=== PATIENT | female | born 2000 ===

== ENCOUNTER 2019-12-07 20:19 | Inpatient (IN) | payer BC ==
[2019-12-07] MEDS ORDERED: Ondansetron 4 MG/2 ML SDV IVPUSH PRN (20:44)
[2019-12-07] MEDS ORDERED: Lidocaine 1% 50 ML MDV INJECT PRN (20:44)
[2019-12-07] MEDS ORDERED: Sodium Chloride 0.9% 2.5 ML Syringe FLUSH PRN (20:44)
[2019-12-07] MEDS ORDERED: Sodium Chloride 0.9% 10 ML Syringe FLUSH PRN (20:44)
[2019-12-07] MEDS ORDERED: Sodium Chloride 0.9% 10 ML SDV IV PRN (20:44)
[2019-12-07] MEDS ORDERED: Misoprostol 200 MCG Tab PO PRN (20:44)
[2019-12-07] MEDS ORDERED: Butorphanol 1 MG/ML SDV IVPUSH PRN (20:44)
[2019-12-07] MEDS ORDERED: Methylergonovine 0.2 MG/1 ML Amp IM PRN (20:44)
[2019-12-07] MEDS ORDERED: Tranexamic Acid 1,000 MG in Sodium Chloride 0.9% 100 ML IV PRN (20:44)
[2019-12-07] MEDS ORDERED: Water For Irrigation,Sterile 1,000 ML Container IRR PRN (20:44)
[2019-12-07] MEDS ORDERED: Carboprost Tromethamine 250 MCG/1 ML Amp IM PRN (20:44)
[2019-12-07] MEDS ORDERED: Oxytocin/0.9 % Sodium Chloride 30 UNIT/500 ML BAG IV SCH ×2 (20:45→22:00)
--- NOTE | 2019-12-07 21:39 | PCM.LDHP ---
L&D History of Present Illness - General Date of Service: 12/07/19 Admit Problem/Dx: Patient Status Order with Admit Dx/Problem 12/07/19 20:23 Patient Status [ADT] Routine 12/07/19 20:44 Patient Status [ADT] Routine Admission Diagnosis/Problem Admission Diagnosis/Problem Source of Information: Patient History Limitations: Reports: No Limitations - History of Present Illness Improves with: Reports: None Worsens with: Reports: None Associated Symptoms: Reports: N - Related Data Allergies/Adverse Reactions: Allergies Allergy/AdvReac Type Severity Reaction Status Date / Time No Known Allergies Allergy Verified 12/07/19 20:54 Home Medications: Home Meds . [No Known Home Meds] 09/12/15 [History] Past Medical History - Past Health History Medical/Surgical History: Denies Medical/Surgical History Social & Family History - Family History Family Medical History: Noncontributory H&P Review of Systems - Review of Systems: Review Of Systems: See Below General: Reports: No Symptoms HEENT: Reports: No Symptoms Pulmonary: Reports: No Symptoms Cardiovascular: Reports: No Symptoms Gastrointestinal: Reports: No Symptoms Genitourinary: Reports: No Symptoms Musculoskeletal: Reports: No Symptoms Skin: Reports: No Symptoms Psychiatric: Reports: No Symptoms Neurological: Reports: No Symptoms Hematologic/Lymphatic: Reports: No Symptoms Immunologic: Reports: No Symptoms L&D Exam - Exam Exam: See Below - Vital Signs Weight: 86.183 kg - OB Specific Contraction Intensity: Mild to Moderate Presentation: Vertex - Mock Score Mock Score Cervix Position: Midposition Mock Score Consistency: Medium Mock Score Effacement: 51-70% Mock Score Dilation: 1-2 cm Mock Score 's Station: -3 Mock Score Total: 5 - Exam General: Alert, Oriented HEENT: PERRLA, Conjunctiva Clear, EACs Clear, EOMI, Hearing Intact, Mucosa Moist & Hyndman, Nares Patent, Normal Nasal Septum, Posterior Pharynx Clear, TMs Clear Neck: Supple, Trachea Midline Lungs: Clear to Auscultation, Normal Respiratory Effort Cardiovascular: Regular Rate, Regular Rhythm GI/Abdominal Exam: Normal Bowel Sounds, Soft, Non-Tender, No Organomegaly, No Distention, No Abnormal Bruit, No Mass, Pelvis Stable Rectal Exam: Normal Exam, Normal Rectal Tone Genitourinary: Normal external exam, Normal bimanual exam, Normal speculum exam Back Exam: Normal Inspection, Full Range of Motion Extremities: Normal Inspection, Normal Range of Motion, Non-Tender, No Pedal Edema, Normal Capillary Refill Skin: Warm, Dry, Intact Neurological: Cranial Nerves Intact, Reflexes Equal Bilateral Psychiatric: Alert, Normal Affect, Normal Mood Problem List Initiated/Reviewed/Updated: Yes Orders Last 24hrs: Active Orders 24 hr Category Date Time Status Patient Status [ADT] Routine ADT 12/07/19 20:23 Active Patient Status [ADT] Routine ADT 12/07/19 20:44 Active Heart Tones [RC] CONTINUOUS Care 12/07/19 20:44 Active Non Stress Test [RC] PER UNIT ROUTINE Care 12/07/19 20:23 Active May Shower [RC] ASDIRECTED Care 12/07/19 20:44 Active Notify Provider [RC] PRN Care 12/07/19 20:44 Active Up ad Shelly [RC] ASDIRECTED Care 12/07/19 20:23 Active Up ad Shelly [RC] ASDIRECTED Care 12/07/19 20:44 Active Vaginal Exam [RC] Click to Edit Care 12/07/19 20:23 Active Vaginal Exam [RC] PRN Care 12/07/19 20:44 Active Vital Signs [RC] PER UNIT ROUTINE Care 12/07/19 20:23 Active Vital Signs [RC] PER UNIT ROUTINE Care 12/07/19 20:44 Active Regular Diet [DIET] Diet 12/07/19 Breakfast Active CBC W/O DIFF,HEMOGRAM [HEME] Routine Lab 12/07/19 20:44 Ordered RPR (SYPHILIS SERO) W/ RFLX [REF] Routine Lab 12/07/19 20:44 Ordered TYPE AND SCREEN [BBK] Routine Lab 12/07/19 20:44 Ordered Butorphanol [Stadol] Med 12/07/19 20:44 Active 1 mg IVPUSH Q1H PRN Carboprost Tromethamine [Hemabate DS] Med 12/07/19 20:44 Active 250 mcg IM ASDIRECTED PRN Lactated Ringers [Ringers, Lactated] 1,000 ml Med 12/07/19 20:45 Active IV ASDIRECTED Lidocaine 1% [Xylocaine 1%] Med 12/07/19 20:44 Active 50 ml INJECT ONETIME PRN Methylergonovine [Methergine] Med 12/07/19 20:44 Active 0.2 mg IM ASDIRECTED PRN Nalbuphine [Nubain] Med 12/07/19 20:44 Active 10 mg IVPUSH Q1H PRN Ondansetron [Zofran] Med 12/07/19 20:44 Active 4 mg IVPUSH Q4H PRN Oxytocin/0.9 % Sodium Chloride [Oxytocin 30 Unit/500 ML Med 12/07/19 20:45 Active -NS] 30 unit in 500 ml IV TITRATE Sodium Chloride 0.9% [Normal Saline] Med 12/07/19 20:44 Active 10 ml IV ASDIRECTED PRN Sodium Chloride 0.9% [Saline Flush] Med 12/07/19 20:44 Active 10 ml FLUSH ASDIRECTED PRN Sodium Chloride 0.9% [Saline Flush] Med 12/07/19 20:44 Active 2.5 ml FLUSH ASDIRECTED PRN Tranexamic Acid [Cyklokapron] 1,000 mg Med 12/07/19 20:44 Active Sodium Chloride 0.9% [Normal Saline] 100 ml IV ONETIME Water For Irrigation,Sterile [Sterile Water for Med 12/07/19 20:44 Active Irrigation] 1,000 ml IRR ASDIRECTED PRN miSOPROStoL [Cytotec] Med 12/07/19 20:44 Active 200 mcg PO ONETIME PRN Scalp Electrode [WOMSER] Per Unit Routine Oth 12/07/19 20:44 Ordered Peripheral IV Insertion Adult [OM.PC] Routine Oth 12/07/19 20:44 Ordered Resuscitation Status Routine Resus Stat 12/07/19 20:23 Ordered Medication Orders Butorphanol Tartrate (Stadol) 1 mg IVPUSH Q1H PRN PRN Reason: Pain Carboprost Tromethamine (Hemabate Ds) 250 mcg IM ASDIRECTED PRN PRN Reason: Post Hemorrhage Tranexamic Acid 1,000 mg/ (Sodium Chloride) 110 mls @ 660 mls/hr IV ONETIME PRN PRN Reason: Bleeding Lactated Ringer's (Ringers, Lactated) 1,000 mls @ 150 mls/hr IV ASDIRECTED CHERYL Oxytocin/Sodium Chloride (Oxytocin 30 Unit/500 Ml-Ns) 30 unit in 500 mls @ 555 mls/hr IV TITRATE CHERYL Lidocaine HCl (Xylocaine 1%) 50 ml INJECT ONETIME PRN PRN Reason: Laceration repair Methylergonovine Maleate (Methergine) 0.2 mg IM ASDIRECTED PRN PRN Reason: Post Hemorrhage Misoprostol (Cytotec) 200 mcg PO ONETIME PRN PRN Reason: Post Hemorrhage Nalbuphine HCl (Nubain) 10 mg IVPUSH Q1H PRN PRN Reason: Pain (severe 7-10) Ondansetron HCl (Zofran) 4 mg IVPUSH Q4H PRN PRN Reason: Nausea/Vomiting Sodium Chloride (Saline Flush) 10 ml FLUSH ASDIRECTED PRN PRN Reason: Keep Vein Open Sodium Chloride (Saline Flush) 2.5 ml FLUSH ASDIRECTED PRN PRN Reason: Keep Vein Open Sodium Chloride (Normal Saline) 10 ml IV ASDIRECTED PRN PRN Reason: IV Use Sterile Water (Sterile Water For Irrigation) 1,000 ml IRR ASDIRECTED PRN PRN Reason: delivery Assessment/Plan Comment:: TErm . SROM. admit and start induction.
[2019-12-07] MEDS ORDERED: Misoprostol 25 MCG (1/4 of 100 MCG) Tab VAG PRN ×2 (21:56)
[2019-12-07] MEDS ORDERED: Terbutaline 1 MG/ML SDV SUBCUT PRN (21:56)
[2019-12-07] MEDS ORDERED: Misoprostol 25 MCG (1/4 of 100 MCG) Tab PO ONE (22:15)
[2019-12-07] MEDS ORDERED: Misoprostol 25 MCG (1/4 of 100 MCG) Tab PO PRN (22:15)
[2019-12-08] MEDS: Lactated Ringers 1,000 ML IV SCH ×3 (01:18→04:48)
[2019-12-08] MEDS: Nalbuphine 10 MG/1 ML Vial IVPUSH PRN ×2 (01:34→03:03)
[2019-12-08] MEDS ORDERED: Ropivacaine HCl/PF 100 ML ONE (03:41)
[2019-12-08] MEDS ORDERED: fentaNYL 100 MCG/2 ML SDV ONE (03:41)
--- NOTE | 2019-12-08 04:18 | PCM.PREANE ---
Preanesthetic Assessment - Anesthesia/Transfusion/Family Hx Anesthesia History: Prior Anesthesia Without Reaction Family History of Anesthesia Reaction: No Transfusion History: No Prior Transfusion(s) - Physical Assessment NPO Status Date: 12/08/19 NPO Status Time: 00:05 Height: 1.65 m Weight: 86.183 kg ASA Class: 1 - Lab Values: Laboratory Last Values WBC 11.74 K/uL (4.0-11.0) H 12/07/19: RBC 4.13 M/uL (4.30-5.90) L 12/07/19 22:25 Hgb 11.0 g/dL (12.0-16.0) L 12/07/19 22: Hct 34.3 % (36.0-46.0) L 12/07/19: MCV 83.1 fL (80.0-98.0) 12/07/19 22: MCH 26.6 pg (27.0-32.0) L 12/07/19: MCHC 32.1 g/dL (31.0-37.0) 12/07/19 22: RDW Std Deviation 43.6 fl (28.0-62.0) 12/07/19 22: RDW Coeff of Melida 14 % (11.0-15.0) 12/07/19 22: Plt Count 206 K/uL (150-400) 12/07/19 22:25 MPV 11.30 fL (7.40-12.00) 12/07/19 22:25 Nucleated RBC % 0.0 /100WBC 12/07/19 22: Nucleated RBCs # 0 K/uL 12/07/19 22:25 Blood Type O POSITIVE 12/07/19 22:25 Antibody Screen NEGATIVE 12/07/19 22:25 - Allergies Allergies/Adverse Reactions: Allergies Allergy/AdvReac Type Severity Reaction Status Date / Time No Known Allergies Allergy Verified 12/07/19 20:54 - Acknowledgements Anesthesia Type Planned: Epidural Pt an Appropriate Candidate for the Planned Anesthesia: Yes Alternatives and Risks of Anesthesia Discussed w Pt/Guardian: Yes Pt/Guardian Understands and Agrees with Anesthesia Plan: Yes PreAnesthesia Questionnaire - Past Health History Medical/Surgical History: Denies 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 [No Known Home Meds] 09/12/15 [History] - CURRENT (IN HOUSE) MEDS Current Meds: Current Medications Butorphanol Tartrate (Stadol) 1 mg IVPUSH Q1H PRN PRN Reason: Pain Carboprost Tromethamine (Hemabate Ds) 250 mcg IM ASDIRECTED PRN PRN Reason: Post Hemorrhage Tranexamic Acid 1,000 mg/ (Sodium Chloride) 110 mls @ 660 mls/hr IV ONETIME PRN PRN Reason: Bleeding Lactated Ringer's (Ringers, Lactated) 1,000 mls @ 150 mls/hr IV ASDIRECTED CHERYL Last Admin: 12/08/19 03:03 Dose: 999 mls/hr Oxytocin/Sodium Chloride (Oxytocin 30 Unit/500 Ml-Ns) 30 unit in 500 mls @ 555 mls/hr IV TITRATE CHERYL Oxytocin/Sodium Chloride (Oxytocin 30 Unit/500 Ml-Ns) 30 unit in 500 mls @ 2 mls/hr IV TITRATE CHERYL; Protocol Lidocaine HCl (Xylocaine 1%) 50 ml INJECT ONETIME PRN PRN Reason: Laceration repair Methylergonovine Maleate (Methergine) 0.2 mg IM ASDIRECTED PRN PRN Reason: Post Hemorrhage Misoprostol (Cytotec) 200 mcg PO ONETIME PRN PRN Reason: Post Hemorrhage Misoprostol (Cytotec) 25 mcg VAG ONETIME PRN PRN Reason: Cervical Ripening Last Admin: 12/07/19 22:35 Dose: 25 mcg Misoprostol (Cytotec) 25 mcg VAG Q4H PRN PRN Reason: Cervical Ripening Misoprostol (Cytotec) 25 mcg PO Q4H PRN PRN Reason: Other Nalbuphine HCl (Nubain) 10 mg IVPUSH Q1H PRN PRN Reason: Pain (severe 7-10) Last Admin: 12/08/19 03:03 Dose: 10 mg Ondansetron HCl (Zofran) 4 mg IVPUSH Q4H PRN PRN Reason: Nausea/Vomiting Sodium Chloride (Saline Flush) 10 ml FLUSH ASDIRECTED PRN PRN Reason: Keep Vein Open Sodium Chloride (Saline Flush) 2.5 ml FLUSH ASDIRECTED PRN PRN Reason: Keep Vein Open Sodium Chloride (Normal Saline) 10 ml IV ASDIRECTED PRN PRN Reason: IV Use Sterile Water (Sterile Water For Irrigation) 1,000 ml IRR ASDIRECTED PRN PRN Reason: delivery Terbutaline Sulfate (Brethine) 0.25 mg SUBCUT ASDIRECTED PRN PRN Reason: Tacysystole Discontinued Medications Fentanyl (Sublimaze) Confirm Administered Dose 100 mcg .ROUTE .STK-MED ONE Stop: 12/08/19 03:42 Ropivacaine (Naropin 0.2%) Confirm Administered Dose 100 mls @ as directed .ROUTE .STK-MED ONE Stop: 12/08/19 03:42 Misoprostol (Cytotec) 25 mcg PO ONETIME ONE Stop: 12/07/19 22:16 Last Admin: 12/07/19 22:35 Dose: 25 mcg
--- NOTE | 2019-12-08 04:21 | PCM.PRNOTE ---
- Free Text/Narrative Note: Anes NOte Patient requests epidural for L&D. Sitting position, level L4-L5 midline approach. Sterile technique. Chloraprep scrub to lumbar area. Sterile fenestrated drape applied. Epidural space achieved using NAVJOT technique. NAVJOT at 4 cm. Cath threaded 5 cm with ease. Cath secured at skin at 9 cm. 0406 Test 3 cc 1.5% lido with epi negative. 0409 Load 10 cc 0.2% ropivicaine with 1 mcg cc fentanyl in slow divided doses. 0414 Pump started wtih 90 cc same solution. Rate is 8 cc hr with 6 cc q 20 min prn bolus. Silver well. Time with patient [id number] Miguel Lopez [employer]
[2019-12-08] MEDS ORDERED: Bisacodyl 10 MG Supp RECTAL PRN (08:46)
[2019-12-08] MEDS ORDERED: oxyCODONE 5 MG Tab PO PRN (08:46)
[2019-12-08] MEDS ORDERED: Benzocaine/Menthol 20%-0.5% Spray 78 GM Cannister TOP PRN (08:46)
[2019-12-08] MEDS ORDERED: Witch Hazel Medicated Pads 40/Jar TOP PRN (08:46)
[2019-12-08] MEDS ORDERED: Acetaminophen 500 MG Tab PO PRN ×2 (08:46)
[2019-12-08] MEDS ORDERED: Docusate Sodium 100 MG Cap PO PRN (08:46)
[2019-12-08] MEDS ORDERED: Lanolin 100% Cream 7 GM Tube TOP PRN (08:46)
[2019-12-08] MEDS ORDERED: Ibuprofen 400 MG Tab PO PRN (08:46)
[2019-12-08] MEDS: Ibuprofen 800 MG Tab PO PRN ×2 (11:57→18:12)
[2019-12-09] MEDS: Ibuprofen 800 MG Tab PO PRN (04:22)
--- NOTE | 2019-12-09 06:56 | PCM48HPAN ---
Post Anesthesia Note - EVALUATION WITHIN 48HRS OF ANESTHETIC Vital Signs in Normal Range: Yes Patient Participated in Evaluation: Yes Respiratory Function Stable: Yes Airway Patent: Yes Cardiovascular Function Stable: Yes Hydration Status Stable: Yes Pain Control Satisfactory: Yes Nausea and Vomiting Control Satisfactory: Yes Mental Status Recovered: Yes Vital Signs: Last Vital Signs Temp 36.3 C 12/09/19 04:05 Pulse 100 12/09/19 04:05 Resp 17 12/09/19 04:05 BP 98/64 12/09/19 04:05 Pulse Ox 98 12/09/19 04:05
--- NOTE | 2019-12-09 08:34 | PCM.PNPP ---
- General Info Date of Service: 12/09/19 Functional Status: Reports: Pain Controlled - Review of Systems General: Reports: No Symptoms HEENT: Reports: No Symptoms Pulmonary: Reports: No Symptoms Cardiovascular: Reports: No Symptoms Gastrointestinal: Reports: No Symptoms Genitourinary: Reports: No Symptoms Musculoskeletal: Reports: No Symptoms Skin: Reports: No Symptoms Neurological: Reports: No Symptoms Psychiatric: Reports: No Symptoms - General Info Date of Service: 12/09/19 - Patient Data Vital Signs - Most Recent: Last Vital Signs Temp 36.3 C 12/09/19 04:05 Pulse 100 12/09/19 04:05 Resp 17 12/09/19 04:05 BP 98/64 12/09/19 04:05 Pulse Ox 98 12/09/19 04:05 Weight - Most Recent: 86.183 kg Lab Results - Last 24 Hours: Laboratory Results - last 24 hr 12/09/19 Range/Units 06:05 Hgb 8.5 L (12.0-16.0) g/dL Hct 26.3 L (36.0-46.0) % Med Orders - Current: Current Medications Acetaminophen (Tylenol Extra Strength) 500 mg PO Q4H PRN PRN Reason: Pain Acetaminophen (Tylenol Extra Strength) 1,000 mg PO Q4H PRN PRN Reason: Pain Benzocaine/Menthol (Dermoplast Pain Relief 20%-0.5% Cascade) 78 gm TOP ASDIRECTED PRN PRN Reason: Perineal Comfort Measure Last Admin: 12/08/19 11:56 Dose: 1 canister Bisacodyl (Dulcolax) 10 mg RECTAL ONETIME PRN PRN Reason: Constipation Butorphanol Tartrate (Stadol) 1 mg IVPUSH Q1H PRN PRN Reason: Pain Carboprost Tromethamine (Hemabate Ds) 250 mcg IM ASDIRECTED PRN PRN Reason: Post Hemorrhage Docusate Sodium (Colace) 100 mg PO BID PRN PRN Reason: Constipation Emollient Ointment (Lansinoh Hpa) 0 gm TOP ASDIRECTED PRN PRN Reason: Sore Nipples Tranexamic Acid 1,000 mg/ (Sodium Chloride) 110 mls @ 660 mls/hr IV ONETIME PRN PRN Reason: Bleeding Lactated Ringer's (Ringers, Lactated) 1,000 mls @ 150 mls/hr IV ASDIRECTED CHERYL Last Admin: 12/08/19 04:48 Dose: 999 mls/hr Oxytocin/Sodium Chloride (Oxytocin 30 Unit/500 Ml-Ns) 30 unit in 500 mls @ 555 mls/hr IV TITRATE CHERYL Oxytocin/Sodium Chloride (Oxytocin 30 Unit/500 Ml-Ns) 30 unit in 500 mls @ 2 mls/hr IV TITRATE CHERYL; Protocol Last Titration: 12/08/19 09:42 Dose: Infused Ibuprofen (Motrin) 400 mg PO Q4H PRN PRN Reason: Pain Ibuprofen (Motrin) 800 mg PO Q6H PRN PRN Reason: Pain Last Admin: 12/09/19 04:22 Dose: 800 mg Lidocaine HCl (Xylocaine 1%) 50 ml INJECT ONETIME PRN PRN Reason: Laceration repair Methylergonovine Maleate (Methergine) 0.2 mg IM ASDIRECTED PRN PRN Reason: Post Hemorrhage Misoprostol (Cytotec) 200 mcg PO ONETIME PRN PRN Reason: Post Hemorrhage Misoprostol (Cytotec) 25 mcg VAG ONETIME PRN PRN Reason: Cervical Ripening Last Admin: 12/07/19 22:35 Dose: 25 mcg Misoprostol (Cytotec) 25 mcg VAG Q4H PRN PRN Reason: Cervical Ripening Misoprostol (Cytotec) 25 mcg PO Q4H PRN PRN Reason: Other Nalbuphine HCl (Nubain) 10 mg IVPUSH Q1H PRN PRN Reason: Pain (severe 7-10) Last Admin: 12/08/19 03:03 Dose: 10 mg Ondansetron HCl (Zofran) 4 mg IVPUSH Q4H PRN PRN Reason: Nausea/Vomiting Oxycodone HCl (Oxycodone) 5 mg PO Q2H PRN PRN Reason: Pain Sodium Chloride (Saline Flush) 10 ml FLUSH ASDIRECTED PRN PRN Reason: Keep Vein Open Sodium Chloride (Saline Flush) 2.5 ml FLUSH ASDIRECTED PRN PRN Reason: Keep Vein Open Sodium Chloride (Normal Saline) 10 ml IV ASDIRECTED PRN PRN Reason: IV Use Sterile Water (Sterile Water For Irrigation) 1,000 ml IRR ASDIRECTED PRN PRN Reason: delivery Terbutaline Sulfate (Brethine) 0.25 mg SUBCUT ASDIRECTED PRN PRN Reason: Tacysystole Nguyễn Mariano (Tucks) 1 pad TOP ASDIRECTED PRN PRN Reason: comfort care Last Admin: 12/08/19 11:56 Dose: 1 tub Discontinued Medications Fentanyl (Sublimaze) Confirm Administered Dose 100 mcg .ROUTE .STK-MED ONE Stop: 12/08/19 03:42 Last Admin: 12/08/19 19:33 Dose: Not Given Ropivacaine (Naropin 0.2%) Confirm Administered Dose 100 mls @ as directed .ROUTE .STK-MED ONE Stop: 12/08/19 03:42 Last Admin: 12/08/19 19:33 Dose: Not Given Misoprostol (Cytotec) 25 mcg PO ONETIME ONE Stop: 12/07/19 22:16 Last Admin: 12/07/19 22:35 Dose: 25 mcg - Interaction Infant Disposition, : in Room with Family Infant Interaction: Holding Infant Feeding: Attempted ; Nursed Fair/Poor Support Person: - Recovery Exam Fundal Tone: Firm Fundal Level: 2 Fingerbreadths Below Umbilicus Fundal Placement: Midline Lochia Amount: Scant Lochia Color: Rubra/Red Perineum Description: Intact, Minimal Bruising/Swelling Episiotomy/Laceration: None Bladder Status: Voiding - Exam General: Alert, Oriented HEENT: Pupils Equal Neck: Supple Lungs: Clear to Auscultation, Normal Respiratory Effort Cardiovascular: Regular Rate, Regular Rhythm GI/Abdominal Exam: Normal Bowel Sounds, Soft, Non-Tender, No Organomegaly, No Distention, No Abnormal Bruit, No Mass, Pelvis Stable Extremities: Normal Inspection, Normal Range of Motion, Non-Tender, No Pedal Edema, Normal Capillary Refill Skin: Warm, Dry, Intact Wound/Incisions: Healing Well Neurological: No New Focal Deficit Psy/Mental Status: Alert, Normal Affect, Normal Mood - Problem List Review Problem List Initiated/Reviewed/Updated: Yes - My Orders Last 24 Hours: My Active Orders 12/08/19 08:46 Patient Status [ADT] Routine May Shower [RC] ASDIRECTED Up ad Shelly [RC] ASDIRECTED Acetaminophen [Tylenol Extra Strength] 1,000 mg PO Q4H PRN Acetaminophen [Tylenol Extra Strength] 500 mg PO Q4H PRN Benzocaine/Menthol [Dermoplast Pain Relief 20%-0.5% Cascade] 78 gm TOP ASDIRECTED PRN Docusate Sodium [Colace] 100 mg PO BID PRN Ibuprofen [Motrin] 400 mg PO Q4H PRN Ibuprofen [Motrin] 800 mg PO Q6H PRN Lanolin [Lansinoh HPA] See Dose Instructions TOP ASDIRECTED PRN bisacodyL [Dulcolax] 10 mg RECTAL ONETIME PRN oxyCODONE 5 mg PO Q2H PRN witch Shivam [Tucks] 1 pad TOP ASDIRECTED PRN Assess Lochia [WOMSER] Per Unit Routine Assess Uterine Involution [WOMSER] Per Unit Routine Peripheral IV Discontinue [OM.PC] Routine - Assessment Assessment:: Status post normal spontaneous vaginal delivery no complications and patient is going home today - Plan Plan:: TErm . SROM. admit and start induction.
--- NOTE | 2019-12-09 09:26 | OR ---
SURGEON: Justin Norman MD DATE OF PROCEDURE: 12/08/2019 Ms. Garnder is a 19-year-old patient, primigravida. She is followed in our clinic primarily by our nurse midwifery service. She is term. She is 39-plus weeks. She was admitted yesterday around 8:30 with spontaneous rupture of the membrane that was confirmed and a tinge of meconium staining. At the time of admission, she was 2-3 cm, 90, vertex, and -1 station. The patient was having early labor contractions, so we used Cytotec to induce labor. It required one dose for her to start her labor. Her GBS status was negative. The patient then continued to progress without any problem. She had epidural anesthesia for labor analgesia and eventually she became complete complete, and after pushing for an hour and 20 minutes, she was able to accomplish normal spontaneous vaginal delivery of a female fetus, cried immediately. score reported to be 8 and 9. The weight is not available. The placenta delivered spontaneous, complete, and intact. There was no need for episiotomy and there was no labial, perineal, or vaginal laceration. Estimated blood loss is 250 to 300 mL. One nuchal cord was noted at the time of the delivery. The placenta was delivered without any problem and heart rate was category 1 through the entire process of labor. There was no complication in the labor and the delivery process. OBED / SHAYLEE /[id number]
[2019-12-09 09:51] VITALS: BP 107/68; PULSE 89
== END 2019-12-09 12:20 | disposition home or self-care (01) | DRG 560 ==
LOC: MW.OBCHECK 20:19 → MW.OB 20:44 → MW.OBCHECK 20:45 → OBSVTOIN 12-08 08:46 → MW.OB 12-08 12:40
PROVIDERS: ADMIT Obstetrics & Gynecology; ATTEND Obstetrics & Gynecology
PROC: 10E0XZZ Delivery of Products of Conception, External Approach (ICD-10-PCS; principal; 2019-12-08)
PROC: 3E0P7VZ Introduction of Hormone into Female Reproductive, Via Natural or Artificial Opening (ICD-10-PCS; 2019-12-08)
PROC: 3E0R3BZ Introduction of Anesthetic Agent into Spinal Canal, Percutaneous Approach (ICD-10-PCS; 2019-12-08)
PROC: 00HU33Z Insertion of Infusion Device into Spinal Canal, Percutaneous Approach (ICD-10-PCS; 2019-12-08)
DX: O77.0 Labor and delivery complicated by meconium in amniotic fluid (principal); Z3A.39 39 weeks gestation of pregnancy; Z37.0 Single live birth
CPT/HCPCS: 01967; 36415; 51702; 59025; 59409; 85014; 85018; 85027; 86592; 86593; 86850; 86900; 86901; A9270-GY; J2300; J2590; J2795; J3010; J7120